=== PATIENT | female | born 2000 | race Caucasian/White ===

== ENCOUNTER 2023-03-17 11:18 | Outpatient (AMB) | payer BC, SELFPAY ==
--- NOTE | 2023-03-17 12:36 | MHC.OFFWIV ---
Intake Vital Signs 03/17/23 12:37 Height 6 ft Weight 161 lb BMI 21.8 BP 102/70 Blood Pressure Location Rt brachial Position Sitting Pulse 60 Pulse Source Pulse Oximeter Temp 97 F Temp Source Temporal Artery Scan Intake Visit Reasons: [employer], cough, congestion ([phone]) Intake Note: Pt is here c/o bad cough and chest congestion for over one week. Patient Tobacco Use Status: Never used Tobacco Allergies No Known Allergies Allergy (Verified 03/17/23 12:49) Medication List - Last Reconciled 03/17/23 by Cristofer Watters MD norgestimate-ethinyl estradiol 0.18/0.215/0.25 mg-35 mcg (28) (Tri-Estarylla) 1 tab PO DAILY Do you need a note to return to daycare/school/sports/work: Yes HPI [employer], cough, congestion ([phone]) HPI Details Patient presents for a sick visit. Reporting symptoms of sinus congestion, sore throat and difficulty swallowing. Low-grade fever. No family member is sick. No recent travel. Patient reports symptoms of malaise and fatigue. PFSH Social History Patient Tobacco Use Status: Never used Tobacco Physical Exam Vital Signs: Last Vital Signs Temp 97 F 03/17/23 12:37 Pulse 60 03/17/23 12:37 BP 102/70 03/17/23 12:37 BMI result Body Mass Index 21.8 Const General: cooperative and healthy appearing Nutritional Appearance: well nourished Orientation/consciousness: patient oriented x3 Limitations: no limitations HEENT Head: Yes normal to inspection Eyes General: appearance normal, both eyes and all related structures Neck Neck: Yes normal visual inspection Chest Chest palpation & inspection: normal palpation of entire chest wall Resp Effort & Inspection: normal respiratory effort Neuro General: patient oriented x3 Assessment & Plan Assessment & Plan (1) Upper respiratory tract infection: Code(s): J06.9 - Acute upper respiratory infection, unspecified Plan: Antibiotics ordered. Increase fluid intake. Tylenol for aches and pains. If symptoms worsen, follow-up here for a recheck. Coding Level of Care Code Est Pt Level 3 (86160) Diagnoses Upper respiratory tract infection J06.9
[2023-03-17 12:37] VITALS: BP 102/70; PULSE 60; TEMP 36.1; BMI 21.8
== END 2023-03-17 13:45 | disposition home or self-care (01) ==
PROVIDERS: Visit Provider Internal Medicine
DX: J06.9 Acute upper respiratory infection, unspecified (principal)
CPT/HCPCS: 99213

== ENCOUNTER 2024-03-03 09:26 | Outpatient (AMB) | payer BC, SELFPAY ==
--- NOTE | 2024-03-03 09:33 | MHC.OFFWIV ---
Intake Vital Signs 03/03/24 09:34 Weight 154 lb BP 120/70 Blood Pressure Location Lt brachial Position Sitting Pulse 100 Pulse Source Pulse Oximeter Temp 98.1 F Temp Source Oral Pulse Oximetry (%) 98 Oxygen Delivery Method Room Air Intake Visit Reasons: EP sharp stomach pain ? food poison Intake Note: Patient here for sharp stomach pain that started thursday and Thursday she was vomiting and is questioning food poisoning. Patient Tobacco Use Status: Never used Tobacco Allergies No Known Allergies Allergy (Verified 03/03/24 09:35) Do you need a note to return to daycare/school/sports/work: No HPI HPI Comments History of Present Illness Details This is a 23-year-old female with no stated past medical or surgical history presenting for evaluation of nausea, vomiting and lingering abdominal pain that first started on Thursday morning. Patient states she woke at approximately 1:00 a.m. with nausea and vomiting that continued throughout the day on Thursday. Patient reports having chills at that time. Patient states that she has not vomited since that time and denies having any fevers, diarrhea, dark or bloody stools, dysuria, urinary frequency or shortness of breath. She reports feeling periumbilical pain with movement only. She has not taken any medication for treatment of her symptoms. Patient believes on Thursday night she may have eaten ground turkey that was ?out of date?. [facility] Social History Patient Tobacco Use Status: Never used Tobacco Review of Systems Const All systems reviewed & are unremarkable except as noted in HPI and below Reports no additional complaints, Reports chills (resolved) and Denies fever(s) Eyes Reports no additional complaints ENT Reports no additional complaints Card Reports no additional complaints Resp Reports no additional complaints GI Reports no additional complaints, Reports abdominal pain and Reports vomiting (resolved) Reports no additional complaints Musc Reports no additional complaints Skin/Breast Reports system reviewed and no additional complaints, except as documented Neuro Reports no additional complaints Psych Reports no additional complaints Physical Exam Vital Signs: Last Vital Signs Temp 98.1 F 03/03/24 09:34 Pulse 100 03/03/24 09:34 BP 120/70 03/03/24 09:34 Pulse Ox 98 03/03/24 09:34 Oxygen Delivery Method Room Air 03/03/24 09:34 Afebrile, HR 88bpm on examination Const General: cooperative, healthy appearing, comfortable, no acute distress, well developed, alert and awake Nutritional Appearance: average body habitus Orientation/consciousness: patient oriented x3 Limitations: no limitations Cardio Rate: regular rate Rhythm: regular rhythm GI Inspection: Yes normal to inspection Palpation (GI): Soft to palpation, Tenderness to palpation present (GI) periumbilically; not in the epigastrum, not in the LLQ, not in the RLQ and with no rebound tenderness, no guarding, not rigid, no hernias and no masses Auscultation: normal bowel sounds Skin General skin exam: no rashes or lesions noted Neuro General: patient oriented x3 Psych Appearance: grossly normal Mental Status: mental status grossly normal Insight: Good insight present (Psych) Judgement: Good judgement present (Psych) Assessment & Plan Assessment & Plan (1) Abdominal pain: Comment: Patient is nontoxic appearing and there is no rebound tenderness or clinical concern for a surgical abdomen on examination. Patient denies having any nausea at this time. Code(s): R10.9 - Unspecified abdominal pain Qualifiers: Abdominal location: periumbilical Qualified Code(s): R10.33 - Periumbilical pain Plan: Increase clear fluids, advance diet slowly over the next 36 hours and return for any worsening symptoms. Patient is in agreement with this plan of care. Coding Level of Care Code Est Pt Level 3 (59201) Diagnoses Periumbilical abdominal pain R10.33 Abdominal location: periumbilical Time Spent (min) 20
[2024-03-03 09:34] VITALS: BP 120/70; PULSE 100; TEMP 36.7; O2SAT 98
== END 2024-03-03 09:48 | disposition home or self-care (01) ==
PROVIDERS: Visit Provider Physician Assistant
DX: R10.33 Periumbilical pain (principal)

== ENCOUNTER → 2024-03-03 09:26 | Outpatient (BNVA) | payer BC, SELFPAY | PROVIDERS: Visit Provider Physician Assistant ==